=== PATIENT | male | born 2000 | race African-American/Black ===

== ENCOUNTER 2024-05-10 07:40 | Outpatient (OUT) | payer OTHER, SELFPAY ==
--- NOTE | 2024-05-10 | XR_ITS ---
The [address] [address] Patient Name: SAMMIE MENARD MRN: [id number] date: 2000 Sex: M Assigned Patient Location: Current Patient Location: Accession/Order Number: [id number] Exam Date: 05/10/2024 07:48 Report Date: 05/12/2024 07:47 At the request of: DIVINA ARIZMENDI Procedure: XR ankle RT min 3V PROCEDURE: XR ankle RT min 3V COMPARISON: None. HISTORY: RIGHT ANKLE PAIN FINDINGS: BONES:No fracture, acute abnormality, or significant arthropathy. SOFT TISSUES:Moderate lateral soft tissue swelling EFFUSION:None visible. OTHER: Negative. XR/XR ankle RT min 3V IMPRESSION: Lateral soft tissue swelling, no acute fracture Electronically authenticated by: JUAN JOSÉ Date: 05/12/2024 07:47
== END 2024-05-10 07:41 | disposition home or self-care (01) ==
LOC: EC 07:44
PROVIDERS: Visit Provider Orthopaedic Surgery
DX: M25.571 Pain in right ankle and joints of right foot (principal); M25.471 Effusion, right ankle
CPT/HCPCS: 73610